=== PATIENT | male | born 1980 | race Caucasian/White ===

== ENCOUNTER 2024-01-14 07:01 | Emergency (ER) | payer SELFPAY ==
[~2024-01-14] VITALS: Ht 182.9 cm; Wt 63.5 kg
[~2024-01-14 07:01] MED LIST: MULT1CAP34 PO
[2024-01-14 07:06] VITALS: BP 134/81; TEMP 98.2; O2SAT 98
[2024-01-14] MEDS ORDERED: IBUP-1955 PO (08:21)
== END 2024-01-14 08:30 | disposition home or self-care (01) ==
LOC: ER 07:01
DX: S63.502A Unspecified sprain of left wrist, initial encounter (principal); Z93.0 Tracheostomy status; W01.0XXA Fall on same level from slipping, tripping and stumbling without subsequent striking against object, initial encounter; Y93.89 Activity, other specified; Y92.89 Other specified places as the place of occurrence of the external cause; Y99.8 Other external cause status
CPT/HCPCS: 73110